=== PATIENT | female | born 1975 | race African-American/Black ===

== ENCOUNTER 2019-08-10 21:17 | Emergency (ER) | payer MEDICARE ==
[~2019-08-10] VITALS: Ht 162.6 cm; Wt 77.3 kg
[~2019-08-10 21:17] MED LIST: CARI250T PO; NAPR250T6 PO; ONDA8TAB9 PO; OXYC30TA66 PO; PROPRANOLOL PO
[2019-08-10 21:45] VITALS: BP 114/70
[2019-08-10] MEDS ORDERED: HYDROcodone/APAP 5/325 TABLET PO PRN (23:00)
[2019-08-10] MEDS ORDERED: HYDROcodone/APAP 5/325 TABLET ONE (23:10)
--- NOTE | 2019-08-10 23:39 | NUR ---
DC EDUCATION PROVIDED, PT DEMONSTRATES UNDERSTANDING. PT PROVIDED CRUTCHES AND DEMONSTRATES SAFE CRUTCH WALKING. PT WHEELED TO DC WITH RN AND SON. SON TO TRANSPORT PT HOME.
== END 2019-08-10 23:42 | disposition home or self-care (01) ==
LOC: ED 23:10
DX: G89.11 Acute pain due to trauma (principal); M25.561 Pain in right knee; G43.909 Migraine, unspecified, not intractable, without status migrainosus; Z90.49 Acquired absence of other specified parts of digestive tract; Z90.721 Acquired absence of ovaries, unilateral; W18.00XA Striking against unspecified object with subsequent fall, initial encounter; Y93.89 Activity, other specified; Y92.410 Unspecified street and highway as the place of occurrence of the external cause; Y99.8 Other external cause status
CPT/HCPCS: 99283

== ENCOUNTER → 2019-10-12 | Outpatient (CLI) | payer MEDICARE | END | disposition home or self-care (01) | LOC: CFH 14:24 | PROVIDERS: ATTEND Internal Medicine Cardiovascular Disease | DX: Z12.31 Encounter for screening mammogram for malignant neoplasm of breast (principal); I34.0 Nonrheumatic mitral (valve) insufficiency | CPT/HCPCS: 77063; 77067; 93306 ==

== ENCOUNTER → 2019-10-26 | Outpatient (CLI) | payer MEDICARE ==
[~2019-10-26] MED LIST changes: +REGADENOSON 0.4 MG/5 ML SYRINGE ONE
== END | disposition home or self-care (01) ==
LOC: CFH 08:39
PROVIDERS: ATTEND Internal Medicine Cardiovascular Disease
DX: R07.9 Chest pain, unspecified (principal); R94.31 Abnormal electrocardiogram [ECG] [EKG]; R06.02 Shortness of breath
CPT/HCPCS: 78452; 93017; A9502; J2785